=== PATIENT | male | born 1950 | race Caucasian/White ===

== ENCOUNTER 2018-02-05 01:25 | Emergency (ER) | payer MEDICARE ==
[~2018-02-05] VITALS: Ht 172.7 cm; Wt 97.7 kg
[~2018-02-05 01:25] MED LIST: AMLO2.5T3 PO; DIVA-78 PO; ESCI20TA PO; NYST30CR9 TP
[2018-02-05 01:55] VITALS: BP 117/65
[2018-02-05] MEDS ORDERED: ACETAMINOPHEN 500 MG TABLET PO ONE (02:30)
== END 2018-02-05 03:20 | disposition home or self-care (01) ==
LOC: EMS 01:26
DX: M25.551 Pain in right hip (principal); M25.552 Pain in left hip; F20.9 Schizophrenia, unspecified; G89.29 Other chronic pain; M19.90 Unspecified osteoarthritis, unspecified site; J45.909 Unspecified asthma, uncomplicated; J44.9 Chronic obstructive pulmonary disease, unspecified; I10 Essential (primary) hypertension; F32.9 Major depressive disorder, single episode, unspecified; Z59.0 Homelessness; Z88.6 Allergy status to analgesic agent; Z88.8 Allergy status to other drugs, medicaments and biological substances; Z96.642 Presence of left artificial hip joint
CPT/HCPCS: 99283